=== PATIENT | male | born 2000 | race Caucasian/White ===

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

== ENCOUNTER 2025-02-21 18:39 | Emergency (ER) | payer MEDICAID ==
[~2025-02-21] VITALS: Ht 188 cm; Wt 114.5 kg
--- NOTE | 2025-02-21 21:49 | Physician Documentation ---
History of Present Illness ~ Chief Complaint: Laceration Stated Complaint: FINGER LAC Time Seen by MD: 19:21 Primary Medical Doctor: BROOKLYNN CASPER [age] year old male right-hand dominant with laceration to the distal portion of the left index finger. Bleeding controlled. Full range of motion. Distal sensation intact. Tetanus Within 5 Years: Yes Medication Reconciliation Allergies: Coded Allergies: corn (Verified Allergy, Unknown, 08/23/19) divalproex sodium (Verified Allergy, Unknown, hallucinations, 08/23/19) gluten (Verified Allergy, Unknown, 08/23/19) Past Medical History Past Medical History: No Pertinent History Past Surgical History: noncontributory Lives with: Mother Lives In: Home Review of Systems All Other Systems at this time: Reviewed and Negative Integumentary: Reports: laceration(s) Physical Exam Vital Signs: Temperature: 98.6, Heart Rate: 96, Respiratory Rate: 14, BP: 123/75, Pulse Oximetry: 97, Weight: 114.500 Oxygen Flow Rate: 0 General Appearance: alert, WD/WN, mild distress EENT: PERRL/EOMI Neck: non-tender Cardiovascular: regular rate, rhythm Respiratory: no respiratory distress Extremities: normal range of motion Extremities 1 cm laceration to the distal lateral border of the left index finger not involving the joint. FDP FDS intact extensor and flexor mechanisms intact Skin: normal color Neurologic: oriented x4 Lymphatic: normal inspection Psychiatric: normal mood/affect Procedures Laceration/Wound Repair Laceration : Location: Left index Length (cm): 1 Anesthesia: none Prep: betadine Wound Repaired With: sutures Suture Size/Type: 4-0, nylon Number of Superficial Sutures: 3 Dressing Applied: simple Tolerated Procedure Well?: yes, no complications Progress Results/Orders Results/Orders Completed Orders - FLAKITO YANEZ PAC Lidocaine 1% 30ml Vial (Xylocaine 1% Via (02/21/25 21:22) Vital Signs 02/21/25 19:15 Temp 98.6 Pulse 96 Resp 14 B/P (MAP) 123/75 Pulse Ox 97 O2 Flow Rate 0 Medical Decision Making Additional Comments Examination history warrants wound management to include cleansing, anesthetized and prior to suture repair. The wound was prepped and draped in sterile f ashion. Cleansed with Betadine and closed with 3 times 4-0 nylon interrupted sutures. Patient tolerated procedure well. Declined wanting Tdap or use of lidocaine prior to closure. Wound edges well approximated. Patient discharge safe stable condition with 72 hour wound check recommendations and suture removal in 10 days. Departure Disposition: 01 HOME / SELF CARE / HOMELESS Impression: Primary Impression: Finger laceration Qualified Codes: S61.229A - Laceration with foreign body of unspecified finger without damage to nail, initial encounter Discharge Instructions: Laceration Care, Adult, [id number] Additional Instructions: He has apply topical antibiotic and Band-Aid daily. Please have wound checked in 72 hours for signs of infection and have stitches removed in 10 days. Thank you for visiting [facility]. Referrals: NO PRIMARY CARE PROVIDER (PCP) Education Educated: Patient Educated regarding: diagnosis, treatment Signature Scribe Signature: . Attestation: . FLAKITO YANEZ PAC Feb 21, 2025 21:49
[2025-02-21] MEDS: LIDOcaine 1% 30ml preserv. free vial IJ STA (22:00)
[2025-02-21 22:13] VITALS: BP 122/82; PULSE 78; RESP 18; TEMP 98.6; O2SAT 99
== END 2025-02-21 22:16 | disposition home or self-care (01) ==
LOC: ER 18:41
DX: S61.211A Laceration without foreign body of left index finger without damage to nail, initial encounter (principal); Z91.018 Allergy to other foods; Z88.8 Allergy status to other drugs, medicaments and biological substances; X58.XXXA Exposure to other specified factors, initial encounter; Y93.89 Activity, other specified; Y92.89 Other specified places as the place of occurrence of the external cause; Y99.8 Other external cause status
CPT/HCPCS: 12001; 99282; A6258